=== PATIENT | female | born 1955 | race Caucasian/White ===

== ENCOUNTER → 2017-05-11 | Outpatient (CLI) | payer OTHER ==
[~2017-05-11] MED LIST: HYDROCHLOROTHIA25 M1 PO; HYDROCODONE BIT1 T11 PO; LEVOTHYROXIN0.125 MG PO
== END | disposition home or self-care (01) ==
LOC: MAMMO 16:50
DX: Z12.31 Encounter for screening mammogram for malignant neoplasm of breast (principal)

== ENCOUNTER 2018-04-22 09:12 | Emergency (ER) | payer OTHER ==
[~2018-04-22] VITALS: Ht 165.1 cm; Wt 93.0 kg
--- NOTE | ~2018-04-22 | EKG ---
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
[2018-04-22] MEDS ORDERED: LISINOPRIL-HCT1 EACH PO (09:24)
[2018-04-22] MEDS ORDERED: WELLBUTRIN SR150 MG PO (09:25)
[2018-04-22] MEDS ORDERED: ADDERALL5 MG PO (09:25)
[2018-04-22] MEDS ORDERED: SINGULAIR10 M1 PO (09:25)
[2018-04-22 09:31] LABS: BASO # 0.1 10*3/uL (0.0-0.1); BASO % 1.2 % (0.0-1.0); EOS # 0.3 10*3/uL (0.0-0.4); EOS % 3.5 % (1.0-4.0); HEMATOCRIT 42.2 % (37.0-47.0); HEMOGLOBIN 14.1 g/dl (12.0-16.0); LYMPH # 2.4 10*3/uL (1.3-4.4); MEAN CELL VOLUME 91.1 fl (81.0-99.0); MEAN CORPUSCULAR HGB 30.5 pg (27.0-31.0); MEAN CORPUSCULAR HGB CONC 33.4 g/dl (33.0-37.0); MEAN PLATELET VOLUME 9.8 fl (9.6-12.3); MONO # 0.4 10*3/uL (0.1-1.0); MONO % 4.6 % (3.0-9.0); NEUT # 6.2 10*3/uL (2.3-7.9); NEUT % 65.2 % (47.0-73.0); PLATELET COUNT AUTOMATED 372 10*3/uL (130-400); RED BLOOD COUNT 4.63 10*6/uL (4.10-5.10); RED CELL DISTRI WIDTH 12.5 % (0-14.5); WHITE BLOOD COUNT 9.6 10*3/uL (4.8-10.8)
[2018-04-22 09:40] LABS: ACT PARTIAL THROMBO TIME 25.3 SECONDS (20.8-31.5)
[2018-04-22 09:50] LABS: BUN 18 mg/dl (7-24); CHLORIDE 104 mmol/L (98-107); CREATININE 1.08 mg/dL (0.55-1.02); POTASSIUM 3.8 mmol/L (3.5-5.1); SODIUM 137 mmol/L (136-145)
[2018-04-22 10:00] LABS: THYROID STIM HORMONE (HS) 0.216 uIU/ml (0.358-4.75)
== END 2018-04-22 11:02 | disposition home or self-care (01) ==
LOC: ED 09:12
PROVIDERS: Emergency Medicine
DX: H53.2 Diplopia (principal); R42 Dizziness and giddiness; R41.0 Disorientation, unspecified; R79.1 Abnormal coagulation profile; Z79.899 Other long term (current) drug therapy

== ENCOUNTER → 2019-02-16 | Outpatient (CLI) | payer OTHER ==
[~2019-02-16] MED LIST changes: +ADDERALL5 MG PO; +LISINOPRIL-HCT1 EACH PO; +SINGULAIR10 M1 PO; +WELLBUTRIN SR150 MG PO
== END | disposition home or self-care (01) ==
LOC: MAMMO 07:58
DX: Z12.31 Encounter for screening mammogram for malignant neoplasm of breast (principal)

== ENCOUNTER → 2024-05-02 | Outpatient (CLI) | payer OTHER ==
[2024-05-02 16:56] LABS: BASO # 0.1 10*3/uL (0.0-0.1); BASO % 1.4 % (0.0-1.0); EOS # 0.2 10*3/uL (0.0-0.4); EOS % 2.2 % (1.0-4.0); HEMATOCRIT 46.3 % (37.0-47.0); MEAN CELL VOLUME 96.3 fl (81.0-99.0); MEAN CORPUSCULAR HGB 29.9 pg (27.0-31.0); MEAN CORPUSCULAR HGB CONC 31.1 g/dl (33.0-37.0); MEAN PLATELET VOLUME 11.2 fl (9.6-12.3); MONO # 0.3 10*3/uL (0.1-1.0); MONO % 3.6 % (3.0-9.0); NEUT # 6.1 10*3/uL (2.3-7.9); NEUT % 73.3 % (47.0-73.0); PLATELET COUNT AUTOMATED 351 10*3/uL (130-400); RED BLOOD COUNT 4.81 10*6/uL (4.10-5.10); RED CELL DISTRI WIDTH 12.7 % (0-14.5); WHITE BLOOD COUNT 8.3 10*3/uL (4.8-10.8)
[2024-05-02 17:00] LABS: BILIRUBIN Negative (Negative); BLOOD 2+ (Negative); CLARITY Clear (Clear); COLOR Dark Yellow (Yellow); GLUCOSE Negative (Negative); KETONE Trace (Negative); LEUKO ESTERASE Trace (Negative); NITRITE Negative (Negative); PH 6.5 (4.5-8.0); SPECIFIC GRAVITY 1.025 (1.001-1.030)
[2024-05-02 17:11] LABS: CALCIUM OXALATE CRYSTALS 3+; POTASSIUM 4.4 mmol/L (3.4-5.1); TOTAL PROTEIN 7.3 gm/dL (6.0-8.0)
[2024-05-02 17:12] LABS: BACTERIA TRACE; EPITHELIAL CELLS 0-2
== END | disposition home or self-care (01) ==
LOC: LAB 09:36
PROVIDERS: ATTEND Nurse Practitioner Family
DX: Z13.220 Encounter for screening for lipoid disorders (principal); E03.9 Hypothyroidism, unspecified

== ENCOUNTER → 2024-05-05 | Outpatient (CLI) | payer OTHER | END | disposition home or self-care (01) | LOC: US 00:11 | PROVIDERS: ATTEND Nurse Practitioner Family | DX: N32.89 Other specified disorders of bladder (principal); N28.9 Disorder of kidney and ureter, unspecified; R31.21 Asymptomatic microscopic hematuria ==

== ENCOUNTER → 2024-05-19 | Outpatient (CLI) | payer OTHER | END | disposition home or self-care (01) | LOC: RAD 02:30 | PROVIDERS: ATTEND Nurse Practitioner Family | DX: Z13.820 Encounter for screening for osteoporosis (principal); M25.562 Pain in left knee; M25.561 Pain in right knee; Z78.0 Asymptomatic menopausal state; Z90.710 Acquired absence of both cervix and uterus ==

== ENCOUNTER → 2024-07-04 | Outpatient (CLI) | payer OTHER ==
[2024-07-04 11:57] LABS: BUN 17 mg/dl (9-23); CHLORIDE 104 mmol/L (98-107); POTASSIUM 3.9 mmol/L (3.4-5.1)
== END | disposition home or self-care (01) ==
LOC: RHCWE 09:25
PROVIDERS: ATTEND Nurse Practitioner Family
DX: N28.9 Disorder of kidney and ureter, unspecified (principal)

== ENCOUNTER → 2024-11-21 | Outpatient (CLI) | payer OTHER ==
[2024-11-21 17:38] LABS: BASO # 0.2 10*3/uL (0.0-0.1); BASO % 1.6 % (0.0-1.0); EOS # 0.2 10*3/uL (0.0-0.4); EOS % 2.6 % (1.0-4.0); MEAN CELL VOLUME 101.2 fl (81.0-99.0); MEAN CORPUSCULAR HGB 31.6 pg (27.0-31.0); MEAN PLATELET VOLUME 10.4 fl (9.6-12.3); MONO # 0.4 10*3/uL (0.1-1.0); MONO % 4.6 % (3.0-9.0); NEUT # 6.6 10*3/uL (2.3-7.9); NEUT % 70.8 % (47.0-73.0); NUCLEATED RED BLOOD CELL 0.0 % (0.0-0.0); NUCLEATED RED BLOOD CELL 0.0 10*3/uL (0.0-0.0); PLATELET COUNT AUTOMATED 360 10*3/uL (130-400); RED CELL DISTRI WIDTH 13.8 % (0-14.5)
[2024-11-21 18:00] LABS: BUN 23.0 mg/dl (9-23); LDL CHOLESTEROL 202.0 mg/dL (9-159); SGPT/ALT 22.0 U/L (5-49)
[2024-11-21 18:15] LABS: FREE T4 0.84 ng/dl (0.89-1.76)
== END | disposition home or self-care (01) ==
LOC: ZRHCWE 09:07
PROVIDERS: ATTEND Nurse Practitioner Family
DX: I10 Essential (primary) hypertension (principal); E03.9 Hypothyroidism, unspecified; E78.2 Mixed hyperlipidemia; M81.0 Age-related osteoporosis without current pathological fracture; F41.1 Generalized anxiety disorder; N28.9 Disorder of kidney and ureter, unspecified; Z12.31 Encounter for screening mammogram for malignant neoplasm of breast; Z76.89 Persons encountering health services in other specified circumstances